=== PATIENT | female | born 1990 | race African-American/Black ===

== ENCOUNTER 2016-02-24 20:17 | Emergency (ER) | payer BC, OTHER ==
[~2016-02-24] VITALS: Ht 170.2 cm; Wt 87.9 kg
[~2016-02-24 20:17] MED LIST: BCPILLS PO
[2016-02-24 20:19] VITALS: TEMP 37; Ht 170.2 cm; Wt 87.9 kg
[2016-02-24] MEDS ORDERED: FAMOTIDINE IV INJ 20 MG in DEXTROSE 5% 100ML 100 ML IV STA (20:33)
[2016-02-24] MEDS ORDERED: METHYLPREDNISOLONE 125 MG VIAL IV STA (20:33)
[2016-02-24] MEDS ORDERED: DiphenhydrAMINE HCL 50 MG/ML VIAL IV STA (20:33)
[2016-02-24] MEDS ORDERED: IBUP-1050 PO (20:47)
[2016-02-24] MEDS ORDERED: BND25 PO (20:47)
[2016-02-24] MEDS ORDERED: PRED50TA PO (21:35)
[2016-02-24 21:49] VITALS: BP 131/91; PULSE 84; O2SAT 98
--- NOTE | 2016-02-24 21:49 | EMERGENCY ROOM VISIT NOTE ---
History Report prepared by Gusibtracey: Shamika Sandoval Under the Supervision of: Dr. Bradley Lovett D.O. First contact with patient: 20:23 Chief Complaint: ALLERGIC REACTION Stated Complaint: HIVES, SWELLING History of Present Illness The patient is a 26 year old female who presents to the Emergency Room with complaints of a possible allergic reaction. She reports yesterday afternoon she took DayQuil for cold symptoms, and she has never taken it before. She started to develop itchy hives and warmth yesterday evening in her bilateral hands, lips , face and arms. She has taken a few different Benadryl doses throughout the day today, and states it has provided good relief. Her last dose was taken around 1900 today. She denies any lip or tongue swelling. She denies any recent travel or change in her eating habits or personal care products. She denies any recent access to pets or known allergens. She notes she also took Penicillin 2 days ago for a tooth infection, but states she has had it before. The patient denies any headache, change in vision, fevers, chest pain, shortness of breath, nausea, vomiting, diarrhea, pain with urination, and melena. Source of History: patient Onset: yesterday evening Position: lip, arm (bilateral), hand (bilateral), other (face) Timing: constant Modifying Factors (Worsening): other (recent Dayquil use) Modifying Factors (Relieving): other (Benadryl) Associated Symptoms: + rash, No SOB, No chest pain, No diarrhea, No fevers, No headache, No melena, No nausea, No urinary symptoms, No vomiting Review of Systems See HPI for pertinent positives & negatives. A total of 10 systems reviewed and were otherwise negative. Past Medical & Surgical Surgical Problems: (1) H/O wisdom tooth extraction (2) Previous section Family History Diabetes mellitus Heart disease Hypertension Social History Smoking Status: Never Smoker Alcohol Use: occasionally Drug Use: none Marital Status: single Housing Status: lives with family Occupation Status: employed Current/Historical Medications Scheduled Control Pills ( Control Pills), 1 TAB PO DAILY Prednisone (Prednisone), 50 MG PO DAILY Scheduled PRN Diphenhydramine Hcl (Benadryl), 25 MG PO Q12 PRN for ALLERGIC REACTION Ibuprofen (Advil), 200-600 MG PO Q4H PRN for Pain Allergies Coded Allergies: Sulfamethoxazole w/Trimethoprim (Verified Allergy, Unknown, hives, 02/24/16 ) Physical Exam Vital Signs Date Time Temp Pulse Resp B/P Pulse Ox O2 Delivery O2 Flow Rate FiO2 02/24/16 20:19 37.0 95 18 133/93 99 Room Air Physical Exam GENERAL: Patient is sitting up in bed, alert, well appearing, well nourished, in no acute distress, non-toxic EYE EXAM: normal conjunctiva OROPHARYNX: no exudate, no erythema, lips, buccal mucosa, and tongue normal and mucous membranes are moist NECK: supple, no nuchal rigidity, no adenopathy, non-tender LUNGS: Clear to auscultation. Normal chest wall mechanics HEART: no murmurs, S1 normal and S2 normal ABDOMEN: abdomen soft, non-tender, normo-active bowel sounds, no masses, no rebound or guarding. BACK: Back is symmetrical on inspection and there is no deformity, no midline tenderness, no CVA tenderness. SKIN: Raised erythema on the palmar aspect of the right and left wrist, posterior to the left ear and dorsal surface of the right foot, with scratch lemon from the patient. UPPER EXTREMITIES: upper extremities are grossly normal. LOWER EXTREMITIES: No pitting edema. NEURO EXAM: Normal sensorium, cranial nerves II-XII grossly intact, normal speech, no gross weakness of arms, no gross weakness of legs. Gross sensation intact. Medical Decision & Procedures Medications Administered Medications (Trade) Dose Ordered Sig/Candice Route Start Time Stop Time Status Last Admin Dose Admin Methylprednisolone Sodium Succinate 125 mg 125 mg NOW STAT IV 02/24/16 20:33 02/24/16 20:34 DC 02/24/16 21:05 125 MG Famotidine/ Dextrose (Pepcid IV Inj/ D5 100ml) 102 ml @ 200 mls/hr NOW STAT IV 02/24/16 20:33 02/24/16 21:03 DC 02/24/16 21:05 200 MLS/HR Diphenhydramine HCl (Benadryl Inj) 50 mg NOW STAT IV 02/24/16 20:33 02/24/16 20:34 DC 02/24/16 21:05 50 MG ED Course ED COURSE: Vital signs were reviewed and showed normal vital signs. The patients medical record was reviewed The above diagnostic studies were performed and reviewed. ED treatments and interventions as stated above. 2024: The patient was evaluated in room A3. A complete history and physical examination was performed. 2032: Benadryl 50 mg IV, Famotidine 20 mg/Dextrose 102 ml @ 200 mls/hr IV, Solu- Medrol 125 mg IV. 2129: Upon reevaluation, the patient is feeling much better and her rash is improved. I discussed my findings with the patient and she understands and agrees with the treatment plan. Based on the patients age, coexisting illnesses, exam and lab findings the decision to treat as an outpatient was made. The patient remained stable while under my care. The patient appeared well at the time of discharge. Medical Decision Etiologies such as allergic reaction, anaphylaxis, urticaria, Rachel-Luis Daniel syndrome, toxic epidermal necrolysis, erythema multiforme, cellulitis, as well as others were entertained. Patient is a 26 year old female who presents the ER for itching along with erythema on her wrist, behind her ear and on her foot. She had some swelling on her right lower lip which resolved with Benadryl earlier today. She notes all the symptoms started yesterday and have been intermittent but resolved with Benadryl. She has had something similar before when she took Bactrim. She notes she is no trouble breathing, eating or drinking. Symptoms completely resolved with Benadryl, famotidine and IV steroids while in the ER. I'm uncertain whether this was truly the [id number] medication that she is taking versus the penicillin that she recently finished up. I do favor its likely the [id number] medication or another inciting factor altogether. Recommended refraining from that [id number] medication. She is discharged with steroids and instructed take Benadryl as needed. She'll follow up with her primary care doctor as well. Discussed with Pt concerning signs and symptoms to watch out for. Pt was instructed to follow up with their PCP and discussed with the patient their option to return to the ED at anytime for persistent or worsening symptoms. The appropriate anticipatory guidance and out- patient management, including indications for return to the emergency department , were explained at length to the patient and understood. Impression Primary Impression: Allergic reaction Scribe Attestation The scribe's documentation has been prepared under my direction and personally reviewed by me in its entirety. I confirm that the note above accurately reflects all work, treatment, procedures, and medical decision making performed by me. Departure Information Dispostion Home / Self-Care Prescriptions Prednisone (PREDNISONE) 50 Mg Tab 50 MG PO DAILY for 2 Days, #2 TAB Prov: Bradley Lovett, DO 02/24/16 Referrals Eufemia Barnard D.O. (PCP) Patient Instructions ED Allergic Reaction General Other, [facility] Additional Instructions Please follow up with your primary care doctor with in the next 24 hours. Any worsening of your symptoms, please return to the ED immediately. This includes any involvement in your mouth, lips, pain in your eyes, worsening swelling or spreading of the rash, or any other concerning signs or symptoms from your standpoint. If the itching does come back and take 50 mg of Benadryl 3 times a day as needed. You cannot drive within 12 hours of taking Benadryl. Please take the steroids as prescribed tomorrow. Problem Qualifiers Primary Impression: Allergic reaction Encounter type: initial encounter Qualified Codes: T78.40XA - Allergy, unspecified, initial encounter
== END 2016-02-24 21:49 | disposition home or self-care (01) ==
LOC: C.EDB 20:18 → C.EDA 21:49
DX: T78.40XA Allergy, unspecified, initial encounter (principal); X58.XXXA Exposure to other specified factors, initial encounter

== ENCOUNTER 2016-07-14 21:48 | Emergency (ER) | payer OTHER ==
[~2016-07-14] VITALS: Ht 170.2 cm; Wt 96.3 kg
[~2016-07-14 21:48] MED LIST changes: +DIPH25CA5 PO; +IBUP-1050 PO
[2016-07-14 21:51] VITALS: TEMP 36.9; Ht 170.2 cm; Wt 96.3 kg
[2016-07-14] MEDS ORDERED: SODIUM CHLORIDE 0.9% 1000ML 1,000 ML IV ONE (22:00)
[2016-07-14 22:28] VITALS: O2SAT 98
[2016-07-14 22:34] LABS: BASO % 0.6 %; BASO ABS # 0.04 K/uL (0-0.2); COMPLETE YES; EOS % 2.3 %; HEMATOCRIT 35.5 % (37-47); IG% 0.3 %; LYMPH % 46.9 %; LYMPH ABS # 3.33 K/uL (1.2-3.4); MEAN CELL VOLUME 80.1 fL (80-100); MEAN CORPUSCULAR HEMOGLOBIN 26.4 pg (25-34); MEAN PLATELET VOLUME 9.5 fL (7.4-10.4); MONO % 7.6 %; NEUT % 42.3 %; PLATELET COUNT 281 K/uL (130-400); RED BLOOD COUNT 4.43 M/uL (4.2-5.4)
[2016-07-14 22:54] LABS: BUN/CREATININE RATIO 17.3 (10-20); CREATININE 0.91 mg/dl (0.60-1.20); POTASSIUM 3.7 mmol/L (3.5-5.1)
[2016-07-14 22:56] LABS: CALCIUM 8.4 mg/dl (8.5-10.1)
[2016-07-14 23:04] LABS: THYROID STIMULATING HORMONE 2.19 uIu/ml (0.300-4.500)
--- NOTE | 2016-07-14 23:14 | DIAGNOSTIC IMAGING REPORT ---
ULTRASOUND RIGHT LOWER EXTREMITY VENOUS CLINICAL HISTORY: Right leg injury. COMPARISON STUDY: No priors. TECHNIQUE: Real-time, grayscale, and color Doppler sonography of the deep veins of the right lower extremity was performed from the inguinal crease to the calf. Compression and augmentation were utilized. FINDINGS: There is no sonographic evidence of deep venous thrombosis identified in the right lower extremity. The common femoral, superficial femoral, and popliteal veins are patent and normally compressible. The greater saphenous vein and the profunda femoris vein at the junction with the common femoral vein are clear. The visualized calf veins are patent. IMPRESSION: There is no sonographic evidence of deep venous thrombosis identified in the right lower extremity. Electronically signed by: Shahram Carpenter M.D. 07/14/2016 11:13 PM Dictated Date/Time: 07/14/2016 11:12 PM
--- NOTE | 2016-07-14 23:22 | DIAGNOSTIC IMAGING REPORT ---
TWO VIEW CHEST CLINICAL HISTORY: Atypical chest pain. FINDINGS: PA and lateral chest radiographs are compared to chest x-ray and chest CT dated 01/11/2016. The cardiomediastinal silhouette is unremarkable. The lungs and pleural spaces are clear. There is no pneumothorax. The bony thorax appears intact. IMPRESSION: No active disease in the chest. Electronically signed by: Shahram Carpenter M.D. 07/14/2016 11:21 PM Dictated Date/Time: 07/14/2016 11:20 PM
[2016-07-14 23:38] VITALS: BP 131/87; PULSE 81; O2SAT 99
--- NOTE | 2016-07-14 23:46 | EMERGENCY ROOM VISIT NOTE ---
History First contact with patient: 21:53 Chief Complaint: CHEST PAIN Stated Complaint: CHEST PAINS, TIGHTNESS IN SHOULDERS History of Present Illness The patient is a 26 year old female who presents to the Emergency Room with complaints of central chest pain that radiates to her back between her shoulders for the past 4 days. The patient does not have dyspnea on exertion. Her symptoms do not improve or worsen with motion. Her discomfort is very vague and dull. She does not have recent travel history but does complain with some right leg pain posteriorly. She is not on control and denies chance of . The patient does not have chronic medical disease. She has intermittently used Advil with mild improvement of symptoms. She rates her current discomfort a 6/10. Review of Systems More than 10 systems were reviewed and otherwise negative with the exception of history of present illness. Past Medical/Surgical History Surgical Problems: (1) H/O wisdom tooth extraction (2) Previous section Family History Diabetes mellitus Heart disease Hypertension Social History Smoking Status: Current Every Day Smoker Alcohol Use: occasionally Drug Use: none Marital Status: single Housing Status: lives with family Occupation Status: employed Current/Historical Medications Scheduled PRN Ibuprofen (Advil), 200-600 MG PO Q4H PRN for Pain Allergies Coded Allergies: Sulfamethoxazole w/Trimethoprim (Verified Allergy, Unknown, hives, 02/24/16 ) Physical Exam Vital Signs Date Time Temp Pulse Resp B/P (MAP) Pulse Ox O2 Delivery O2 Flow Rate FiO2 07/14/16 22:28 98 Room Air 07/14/16 22:24 76 07/14/16 21:51 36.9 83 18 140/95 98 Room Air Physical Exam VITALS: Vitals are noted on the nurse's note and reviewed by myself. Vital signs stable. GENERAL: Well-developed, well-nourished, black female, who is in no acute distress and resting comfortably. Patient is cooperative with the examination. HEAD: Normocephalic atraumatic. EARS: External ear normal. External auditory canals clear, tympanic membranes pearly oswald without erythema or effusion bilaterally. EYES: Pupils equal round and reactive to light and accommodation. Conjunctivae without injection, sclerae without icterus. Extraocular movements intact. NOSE: Patent, turbinates without inflammation or discharge. MOUTH: Mucous membranes moist. Tonsils are not enlarged. Pharynx without erythema, blood, or exudate. Uvula midline. Airway patent. NECK: Supple without nuchal rigidity. No lymphadenopathy. No thyromegaly. Cervical spine is nontender. HEART: Regular rate and rhythm without murmurs gallops or rubs. LUNGS: Clear to auscultation bilaterally without wheezes, rales or rhonchi. No retractions or accessory muscle use. ABDOMEN: Positive normal bowel sounds x 4. Soft, nontender, without masses or organomegaly. No guarding or rebound tenderness. MUSCULOSKELETAL: Mild tenderness throughout the toes. Right calf without distinct palpable cord. No obvious edema. Medical Decision & Procedures ER Provider Diagnostic Interpretation: TWO VIEW CHEST CLINICAL HISTORY: Atypical chest pain. FINDINGS: PA and lateral chest radiographs are compared to chest x-ray and chest CT dated 01/11/2016. The cardiomediastinal silhouette is unremarkable. The lungs and pleural spaces are clear. There is no pneumothorax. The bony thorax appears intact. IMPRESSION: No active disease in the chest. ULTRASOUND RIGHT LOWER EXTREMITY VENOUS CLINICAL HISTORY: Right leg injury. COMPARISON STUDY: No priors. TECHNIQUE: Real-time, grayscale, and color Doppler sonography of the deep veins of the right lower extremity was performed from the inguinal crease to the calf. Compression and augmentation were utilized. FINDINGS: There is no sonographic evidence of deep venous thrombosis identified in the right lower extremity. The common femoral, superficial femoral, and popliteal veins are patent and normally compressible. The greater saphenous vein and the profunda femoris vein at the junction with the common femoral vein are clear. The visualized calf veins are patent. IMPRESSION: There is no sonographic evidence of deep venous thrombosis identified in the right lower extremity. Laboratory Results 07/14/16 22:20 Red Blood Count 4.43, Mean Corpuscular Volume 80.1, Mean Corpuscular Hemoglobin 26.4, Mean Corpuscular Hemoglobin Concent 33.0, Mean Platelet Volume 9.5, Neutrophils (%) (Auto) 42.3, Lymphocytes (%) (Auto) 46.9, Monocytes (%) (Auto) 7.6, Eosinophils (%) (Auto) 2.3, Basophils (%) (Auto) 0.6, Neutrophils # (Auto) 3.01, Lymphocytes # (Auto) 3.33, Monocytes # (Auto) 0.54, Eosinophils # (Auto) 0.16, Basophils # (Auto) 0.04 07/14/16 22:20 Test 07/14/16 22:20 07/14/16 22:27 White Blood Count 7.10 K/uL (4.8-10.8) Red Blood Count 4.43 M/uL (4.2-5.4) Hemoglobin 11.7 g/dL (12.0-16.0) Hematocrit 35.5 % (37-47) Mean Corpuscular Volume 80.1 fL (80-100) Mean Corpuscular Hemoglobin 26.4 pg (25-34) Mean Corpuscular Hemoglobin Concent 33.0 g/dl (32-36) Platelet Count 281 K/uL (130-400) Mean Platelet Volume 9.5 fL (7.4-10.4) Neutrophils (%) (Auto) 42.3 % Lymphocytes (%) (Auto) 46.9 % Monocytes (%) (Auto) 7.6 % Eosinophils (%) (Auto) 2.3 % Basophils (%) (Auto) 0.6 % Neutrophils # (Auto) 3.01 K/uL (1.4-6.5) Lymphocytes # (Auto) 3.33 K/uL (1.2-3.4) Monocytes # (Auto) 0.54 K/uL (0.11-0.59) Eosinophils # (Auto) 0.16 K/uL (0-0.5) Basophils # (Auto) 0.04 K/uL (0-0.2) RDW Standard Deviation 38.2 fL (36.4-46.3) RDW Coefficient of Variation 13.1 % (11.5-14.5) Immature Granulocyte % (Auto) 0.3 % Immature Granulocyte # (Auto) 0.02 K/uL (0.00-0.02) Anion Gap 8.0 mmol/L (3-11) Est Creatinine Clear Calc Drug Dose 111.6 ml/min Estimated GFR () 100.9 Estimated GFR (Non- 87.1 BUN/Creatinine Ratio 17.3 (10-20) Calcium Level 8.4 mg/dl (8.5-10.1) Total Bilirubin 0.3 mg/dl (0.2-1) Aspartate Amino Transf (AST/SGOT) 18 U/L (15-37) Alanine Aminotransferase (ALT/SGPT) 19 U/L (12-78) Alkaline Phosphatase 87 U/L (45-117) Total Protein 6.6 gm/dl (6.4-8.2) Albumin 3.3 gm/dl (3.4-5.0) Globulin 3.3 gm/dl (2.5-4.0) Albumin/Globulin Ratio 1.0 (0.9-2) Lipase 107 U/L (73-393) Thyroid Stimulating Hormone (TSH) 2.190 uIu/ml (0.300-4.500) Bedside D-Dimer 164 ng/mlFEU (0-450) Bedside Troponin I 0.000 ng/ml (0-0.045) Medications Administered Medications (Trade) Dose Ordered Sig/Candice Route Start Time Stop Time Status Last Admin Dose Admin Sodium Chloride 1,000 ml @ 999 mls/hr Q1H1M ONCE IV 07/14/16 22:00 07/14/16 23:00 DC 07/14/16 22:33 999 MLS/HR ECG Change: Normal sinus rhythm @78 bpm Normal ECG When compared with ECG of 11-JAN-2016 09:10, Nonspecific T wave abnormality, improved in Inferior leads Nonspecific T wave abnormality no longer evident in Anterolateral leads ED Course Physical exam and history were performed. Nursing notes and EMR were reviewed. Patient appears to have reports of vague chest and back pain for the past 4 days. She does not appear toxic on examination. Her EKG is normal sinus rhythm without acute ST elevation. IV access was established and labs were obtained. The patient does complain of some right lower leg pain and ultrasound was performed. She was hydrated as above. Patient's blood work is as above and was reviewed. She does not have a significantly elevated blood cell count, gross anemia, bandemia, or significant electrolyte imbalance. Lipase and transaminases are nondiagnostic. Troponin and d-dimer are negative. X-ray does not show acute findings. Ultrasound is negative. Overall the patient appears stable for discharge home. I do not suspect that she has an acute cardiopulmonary event. Her symptoms are likely musculoskeletal in nature. Patient will be referred back to her primary care physician and instructed on conservative treatment. She was otherwise invited back to the ER and was pleased with plan of care. The chart was completed utilizing [employer] Voice Recognition Software. Grammatical errors, random word insertions, pronoun errors, and incomplete sentences are an occasional consequence of this system due to software limitations, ambient noise, and hardware issues. Any formal questions or concerns about the content, text, or information contained within the body of this dictation should be directly addressed to the provider for clarification. . Medical Decision Differential diagnosis includes, but is not limited to: Myocardial infarction, dysrhythmia, pericarditis, pneumothorax, aortic aneurysm/dissection, DVT/PE, anxiety, GERD, PUD, electrolyte imbalance, thyroid disorder, pneumonia, bronchitis, pancreatitis, and others Impression Primary Impression: Chest wall pain Departure Information Referrals No Doctor, Assigned (PCP) Patient Instructions [facility]
== END 2016-07-14 23:39 | disposition home or self-care (01) ==
LOC: C.EDB 21:50
DX: R07.89 Other chest pain (principal); Z83.3 Family history of diabetes mellitus; Z82.49 Family history of ischemic heart disease and other diseases of the circulatory system; F17.210 Nicotine dependence, cigarettes, uncomplicated

== ENCOUNTER 2017-02-08 16:21 | Emergency (ER) | payer OTHER ==
[~2017-02-08] VITALS: Ht 170.2 cm; Wt 109.0 kg
[~2017-02-08 16:21] MED LIST changes: -BCPILLS PO; -DIPH25CA5 PO
[2017-02-08 16:26] VITALS: TEMP 36.8; Ht 170.2 cm; Wt 109.0 kg
[2017-02-08] MEDS ORDERED: SERT50TA PO (16:51)
[2017-02-08] MEDS ORDERED: IBUPROFEN 600 MG TAB PO ONE (17:00)
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
[2017-02-08] MEDS ORDERED: CYCL10TA6 PO (18:07)
[2017-02-08 18:38] VITALS: BP 175/115; PULSE 93; O2SAT 96
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
== END 2017-02-08 18:38 | disposition home or self-care (01) ==
LOC: C.EDB 16:22 → C.EDD 18:38
DX: M54.2 Cervicalgia (principal); M54.6 Pain in thoracic spine; V43.52XA Car driver injured in collision with other type car in traffic accident, initial encounter; Y93.89 Activity, other specified; Y99.8 Other external cause status; Z72.0 Tobacco use; Z98.818 Other dental procedure status; Z98.891 History of uterine scar from previous surgery